=== PATIENT | male | born 1940 | race Caucasian/White ===

== ENCOUNTER 2020-03-05 18:49 | Inpatient (IN) | payer OTHER ==
[~2020-03-05] VITALS: Ht 185.4 cm; Wt 78.9 kg
--- NOTE | ~2020-03-05 | HC ---
[facility] [place] [address] CONSULTATION Name: LAKESHIA AUSTIN Room #: 211-P ADM IN M.R.#: [id number] Admission: 03/05/20 Attend Phys: Fly Willis MD Discharge: Date of : 38 Report #: [id number] THIS REPORT FOR: cc: Lori Davis,Nitesh Lange MD ~ DATE OF SERVICE: 03/10/2020 HISTORY OF PRESENT ILLNESS: The patient is an 79-year-old white male transferred from [facility] for recurrent positive blood cultures. He has a history of myelofibrosis with a hemoglobin typically running around 8-9, but was noted to have a lower hemoglobin upon admission at 6.6. He was transfused. He had complaints of left shoulder pain. He was diagnosed with persistent MSSA bacteremia secondary to a cervical abscess with osteomyelitis. MRI showed a cervical osteomyelitis approximately 2 cm abscess. 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 There is suspicion for endocarditis. Ortho Spine has been consulted as well. We are seeing the patient in rehabilitation medicine consultation. PAST MEDICAL HISTORY: Includes GI bleed, hypertension, diabetes mellitus, leukemia. He has a history of myelofibrosis. He had a basal cell CA removed from his face, 01/23/2020. He has a prior history of a CVA, but it does not sound like he had that much in the way of residual, history of prostate CA, status post prostatectomy. MEDICATIONS: Please see the full medication listing. ALLERGIES: PENICILLIN. SOCIAL HISTORY: Lives in a house with his , one step in. Did not utilize any gait aids. They are both retired. He has occasional falls approximately once a year when he "does something stupid." per the patient and his . REVIEW OF SYSTEMS: Did not offer any current complaints of chest pain, shortness of breath, abdominal discomfort. Complains of overall generalized weakness and debilitation. PHYSICAL EXAMINATION: GENERAL: An 79-year-old white male in no obvious distress. VITAL SIGNS: Last recorded temperature 97.2, pulse 60, respirations 18, blood pressure 123/47. The patient is a little groggy, but otherwise he is alert and follows basic 1 step commands. HEENT: Facies are symmetric. EXTREMITIES: He has some decreased range of motion of both shoulders at end [facility] [address] [place] [address] CONSULTATION Name: LAKESHIA AUSTIN Room #: 211-P [facility] IN [facility].#: [id number] Admission: 03/05/20 Attend Phys: Fly Willis MD Discharge: Date of : 38 Report #: [id number] range with some discomfort. I would grade his strength at probably a grade 4-/5. His lower extremities, he appears to have 1+ to 2+ lower extremity edema. This is pretibial. Strength is probably a grade 4- to 3+/5. DTRs are trace to 1. He has been min assist with sit to stand and has been min assist to ambulate up to 200 feet with a front-wheeled walker. He does have some decreased balance. OT notes that he is mod assist with toilet transfers, max assist to don socks. ASSESSMENT: The patient is an 79-year-old male with the following problem list: 1. 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 2. Persistent Methicillin-resistant Staphylococcus aureus bacteremia secondary to the cervical abscess. 3. Suspected endocarditis per the Infectious Disease with workup underway. 4. Myelofibrosis. 5. Diabetes mellitus. 6. Chronic kidney disease. 7. Paroxysmal atrial fibrillation. 8. Remote history of prostate cancer. 9. Remote stroke. PLAN: Workup is continuing. Multiple consultants are involved. Therapies are working with him. He certainly may be a candidate for an acute in-hospital inpatient rehabilitation stay to further maximize his functional independence with mobility and ADLs as well as the continuation of appropriate medical treatment/antibiotics/multiple sap plant maintenance consultant involvement as warranted. At this point, we will be glad to follow along with you regarding his rehab therapy needs. By: [phone] Nitesh Cates MD /DANTE
[~2020-03-05 18:49] MED LIST: AMLODIPINE BESY10 MG PO; ASPIR 8181 MG PO; AZITHROMYCIN 2250 MG PO; CARVEDILOL12.5 MG PO; CEFDINIR300 MG PO; COZAAR 50 MG TA50 M1 PO; D3-501250 MCG PO; FISH OIL 1,001000 M2 PO; GLIPIZIDE 10 MG10 MG PO; GLUCOTROL5 MG PO; HUMALOG100 UNIT/1 SUBQ; HYDROCHLOROTHIA25 M2 PO; JAKAFI20 MG PO; LASIX 40 MG TAB40 M2 PO; LIPITOR10 MG PO; LISINOPRIL20 MG PO; LOPRESSOR50 PO; LORCET 5-325 M1 EACH PO; LOSARTAN POTAS100 MG PO; MEDROLDOSEPACK PO; METFORMIN HCL500 M3 PO; METFORMIN HCL500 MG PO; MUCINEX600 MG PO; NEURONTIN 300300 M1 PO; NIFEDIPINE ER30 M1 PO; PREDNISONE 10 M10 MG PO; PRILOSEC PO; PROAIR HFA8.5 GM INH; SENNA PLUS TAB1 EACH PO; TRIGLIDE160 M1 PO; VENTOLIN HFA 1818 GM INH; XARELTO15 MG PO
--- NOTE | 2020-03-05 19:16 | NUR ---
TO UNIT FROM [facility] BY THIAGO, REPORT FROM MARCEL PRIEST, AT 1840. REPORT TO MARCEL HEREDIA.
--- NOTE | 2020-03-06 04:21 | NUR ---
ASSUMED CARE OF PT, PT ADMITTED DIRECT ADMIT FROM [facility]. SUPPLY CRIB ATTENDANT PLACED ON SHOWS NSR WITH PAC'S PT ASSISTED UP TO CHAIR DUE TO PT STATES HE IS UNABLE TO REST IN BED. ASSESSMENTAND DATA BASE COMPLETED. DISCUSSED POC WITH PT. YELLOW SOCK PLACED ON WITH YELLOW ARM BAND AND CHAIR ALARM FOR SAFETY . NEW PLACED DUE TO PRESENT IV INFILTRATED. FREQ CHECKS DUE PT IN BACK HALLWAY AND CHAIR ALARM IS HARD TO HEAR.
[2020-03-06 04:45] VITALS: BP 107/47
[2020-03-06 05:40] LABS: HEMATOCRIT 22.2 % (42.0-52.0); HEMOGLOBIN 7.1 gm/dL (14.0-18.0); MCHC 32.1 g/dL (28.0-37.0); MCV 81.1 fL (80.0-100.0); RBC 2.74 mil/uL (4.50-6.00); RDW 22.6 % (10.5-14.5); WBC 15.3 thou/uL (4.0-11.0)
[2020-03-06 05:47] LABS: CALCIUM 8.7 mg/dL (8.5-10.1); CREATININE 1.9 mg/dL (0.7-1.3); POTASSIUM 5.4 mmol/L (3.5-5.1)
[2020-03-06 07:55] VITALS: BP 152/69
[2020-03-06 11:30] VITALS: BP 133/59
[2020-03-06 16:00] VITALS: BP 122/48
--- NOTE | 2020-03-06 20:14 | NUR ---
ASSUMMED PT CARE AT APPROXIMATELY 0700. PT A&0 X4, FORGETFUL AT TIMES. PT DROWSY THROUGHOUT SHIFT. ASSESSMENT CHARTED. FALL PRECAUTIONS IN PLACE. PT DENIES HAVING CHEST PAIN. PT DENIES HAVING SOB. PT STATED HE HAD ACUTE PAIN. PT RECEIVED ANALGESICS. PT STATED ANALGESICS HELPED RELIEVE PAIN. VITAL SIGNS STABLE. BLOOD SUGARS STABLE. PT COMFORTABLE. PT DENIES HAVING FURTHER CONCERNS. PT UP TO CHAIR THROUGHOUT SHIFT. EDUCATED PT AND PT'S FAMILY ABOUT POC. PT AND PT'S FAMILY STATED UNDERSTANDING AND DENIED HAVING FURTHER QUESTIONS.
[2020-03-06 20:42] VITALS: BP 144/57
[2020-03-07] VITALS (7 sets, daily range): BP systolic 107–122; BP diastolic 45–62
[2020-03-07 05:28] LABS: HEMOGLOBIN 6.7 gm/dL (14.0-18.0)
[2020-03-07 05:30] LABS: MCV 81.3 fL (80.0-100.0); RBC 2.58 mil/uL (4.50-6.00); RDW 22.9 % (10.5-14.5); WBC 13.3 thou/uL (4.0-11.0)
[2020-03-07 05:38] LABS: CALCIUM 8.2 mg/dL (8.5-10.1); CREATININE 1.6 mg/dL (0.7-1.3); MAGNESIUM 2.1 mg/dL (1.8-2.4); POTASSIUM 4.6 mmol/L (3.5-5.1)
--- NOTE | 2020-03-07 07:23 | NUR ---
ASSESSMENT DOCUMENTED.PT A/OX4,VSS.RA W/O RESP DISTRESS.PT BEEN C/O PAIN NOT CONTROLLED WITH THE ORDERED PAIN MEDS.PT STATED PAIN IS FROM THE NECK DOWN THE SPINE TO LOWER BACK.HE STATED IT'S WORSE ON THE LEFT SIDE.HE BEEN UP IN THE CHAIR MOST 0F THE NOC SINCE HE CANNOT TOLERATE SLEEPING IN THE BED.HEATING PAD AND REPOSTIONING HAVE BEEN APPLIED WELL W/O MUCH RELIEF.PT STATING NOTHING IS WORKING FOR HIS PAIN.HE SEEMS LIKE HE IS GETTING FRUSTRATED.HE STATED HIS BEEN IS GETTING WORSE.ON ANTIBIOTICS FOR BACTERIMIA. JOSIANE LES EDEMATOUS.UNABLE TO ELEVATE THEM SINCE PT WONT LAY DOWN.IVF INFUSING.PT ALSO C/O NOT HAVING BOWEL MOVEMENT FOR A WEEK.MEDS GIVEN ORDERED.LACQUER COATER WAS NOTIFIED ,DULCOLAX SUPPOSITORY WAS GIVEN W/GOOD RESULTS.SO FAR HE HAS HAD THREE SOFT BM.HE DENIES FURTHER CONCERNS.DISCUSSED WITH DAY RN AND REQUESTED TO F/U ON PAIN MANAGEMNET WITH THE PROVIDER.WILL CONT WITH POC/
--- NOTE | 2020-03-07 12:40 | NUR ---
PT CARE ASSUMED AT 0700. ASSESSMENTS CHARTED. MEDICATION CHARTED. PT HAS UNCONTROLLED PAIN, BUT HAS NOT REQUESTED PAIN MEDICATION. LFA IV. TRANSESOPHAGEAL ECHO SCHEDULED FOR 03/08. CC DIET; ACHS. BIGEMINY; RATE OF 60. AO X 4. ASSIST X 1. PT TO GET BLOOD TRANSFUSION. PT TRANSFERRED TO NURSE PLEITEZ'S CARE.
[2020-03-07 17:01] LABS: HEMATOCRIT 25.3 % (42.0-52.0); HEMOGLOBIN 7.8 gm/dL (14.0-18.0)
[2020-03-08 03:38] VITALS: BP 119/54
[2020-03-08 04:39] LABS: CALCIUM 8.3 mg/dL (8.5-10.1); CREATININE 1.3 mg/dL (0.7-1.3); MAGNESIUM 2.1 mg/dL (1.8-2.4); POTASSIUM 4.5 mmol/L (3.5-5.1)
[2020-03-08 04:41] LABS: HEMATOCRIT 24.9 % (42.0-52.0); HEMOGLOBIN 7.9 gm/dL (14.0-18.0); MCHC 31.5 g/dL (28.0-37.0); MCV 82.5 fL (80.0-100.0); RBC 3.02 mil/uL (4.50-6.00)
--- NOTE | 2020-03-08 06:13 | NUR ---
PAIN FAIRLY CONTROLLED.MONITOR SHOWS BIGEMINY.POC CONTINUED.
--- NOTE | 2020-03-08 11:36 | NUR ---
ASSESSMENT: CM REVIEWED CHART AND CONTACTED PATIENT IN HIS ROOM BUT HIS HEBERT ANSWERED. PT IS A DIRECT ADMIT FROM [facility] FOR EVAL OF BACTEREMIA. PT IS CURRENTLY ON IV ANBX AND ID IS FOLLOWING. PT LIVES AT HOME WITH HIS IN A HOUSE. REPORTS THEY HAVE ONE STEP TO ENTER THE HOME AND NO STEPS HE HAS TO USE ONCE INSIDE. REPORTS PATIENT IS INDEPENDENT WITH ADLS AND AMBULATION. PT DOES NOT HAVE A CANE OR WALKER BUT DOES HAVE A GRAB BAR AND SHOWER CHAIR. PT HAS HAD [facility] IN THE PAST AND ALSO HAS BEEN TO [facility] IN THE PAST. CM DISCUSSED HOW PATIENT IS ON IV ANBX AND PT/OT IS ORDERED TO EVAL PATIENT. SHE STATES THEY PREFER THAT PATIENT NOT GO TO A SNF AT ALL AT DISCHARGE BUT WILL SEE WHAT THE RECOMMENDATIONS ARE. SHE REPORTS IF PATIENT IS NEEDING A LONG COURSE OF IV ANBX THEY WOULD PREFER TO GO HOME WITH POSSIBLE HOME IV ANBX RATHER THEN SNF. CM WILL COTNINUE TO FOLLOW AND AWAIT FURTHER RECOMMENDATIONS AND PT/OT EVALS.
[2020-03-08 12:23] VITALS: BP 145/57
[2020-03-08 14:07] VITALS: BP 118/46
[2020-03-08 17:06] VITALS: BP 120/41
--- NOTE | 2020-03-08 19:23 | NUR ---
ASSUMED CARE AT CHANGE OF SHIFT. ALERT X4, VOICED HE FEELS FOGGY WITH NARCOTICS. TREATED PAIN WITH TYLENOL ONLY WITH MINIMAL RELIEF. STAND BY ASSIST. LARGE BM TODAY VOIDS PER URINAL. NPO FOR LUIS FERNANDO TOMORROW. LAUREL COPLETED C REPORT FOR DETAILS. NEUROSURGEN CONSULTED NOTOIFIED. 2+ EDEMA TO LE ENCOURAGED TO ELEVATE. CALL LIGHT AND PERSONAL ITEMS IN REACH. FALL PRECATIONS IN PLACE.
[2020-03-08 20:55] VITALS: BP 145/107
--- NOTE | 2020-03-09 01:47 | NUR ---
PAIN POORLY CONTROLLED.NPO SINCE MIDNIGHT FOR A POSSIBLE LUIS FERNANDO IN AM.HEATING PAD INTERMITTENTLY.MONITOR SHOWS SR WITH BIGEMINY.POC CONTINUED.
[2020-03-09 04:45] VITALS: BP 135/48
[2020-03-09 05:06] LABS: HEMATOCRIT 23.7 % (42.0-52.0); HEMOGLOBIN 7.6 gm/dL (14.0-18.0); MCV 81.2 fL (80.0-100.0); RBC 2.92 mil/uL (4.50-6.00); RDW 21.7 % (10.5-14.5); WBC 24.2 thou/uL (4.0-11.0)
[2020-03-09 05:24] LABS: CALCIUM 8.4 mg/dL (8.5-10.1); CREATININE 1.4 mg/dL (0.7-1.3); MAGNESIUM 2.1 mg/dL (1.8-2.4); POTASSIUM 4.5 mmol/L (3.5-5.1)
--- NOTE | 2020-03-09 07:59 | NUR ---
CONSENT OBTAINED THIS AM FOR UPCOMING LUIS FERNANDO, PT VERBALIZED UNDERSTANDING OF PROCEDURE AND RISKS DISCUSSED, NO CONCERNS AT THIS TIME. PT REMAINS NPO AT THIS TIME. DENIES ANY PAIN AT PRESENT. AFEBRILE THIS AM/
[2020-03-09 08:11] VITALS: BP 156/43
--- NOTE | 2020-03-09 09:21 | TEE ---
[facility] [place] [address] TRANSESOPHAGEAL ECHOCARDIOGRAM Name: LAKESHIA AUSTIN Room #: 211-P ADM IN M.R.#: [id number] Admission: 03/05/20 Attend Phys: Fly Willis MD Discharge: Date of : 38 Report #: [id number] THIS REPORT FOR: cc: Lori Davis Anna S. DO Lundgren, Craig H. MD [facility] ~ APPROVED REPORT Study performed: 03/09/2020 08:45:35 EXAM: Transesophageal Echocardiogram Patient Location: In-Patient Room #: 211 Status: routine BSA: 2.03 HR: 69 bpm BP: 192/51 mmHg Rhythm: NSR Other Information Study Quality: Good Indications Rule out endocarditis. Procedure After obtaining informed consent, patient underwent transesophageal echo in the [employer]. Type of Sedation : Conscious Sedation Sedation was administered by Srinivas Woodard RN. Sedation was achieved intravenously with: Versed (2) Fentanyl (100) Transesophageal probe was inserted and advanced into esophagus without difficulty by Merlin Chaudhary MD. Echo enhancement indication: R/O Septal defect. Echo enhancement agent administered: Agitated Saline The LUIS FERNANDO was performed without complications. Throughout the procedure, the blood pressure, pulse oximetry, cardiac rhythm, and rate were monitored. The patient tolerated the procedure without adverse effects. Recovery from conscious sedation was uneventful and vital signs were stable. Left Ventricle [facility] [address] [place] [address] TRANSESOPHAGEAL ECHOCARDIOGRAM Name: LAKESHIA AUSTIN Room #: 211-P [facility] IN M.R.#: [id number] Admission: 03/05/20 Attend Phys: Fly Willis, Discharge: Date of : 38 Report #: [id number] The left ventricle is normal size. There is normal LV segmental wall motion. Mild concentric left ventricular hypertrophy. Left ventricular systolic function is normal. LVEF is 55-60%. Right Ventricle The right ventricle is normal size. The right ventricular systolic function is normal. Atria Left atrium is dilated. No thrombus is visualized in the left atrium or appendage. No shunting noted with contrast bubble injection. The right atrium size is normal. Aortic Valve Aortic valve is moderately calcified, trileaflet. Trace aortic regurgitation. Mild aortic stenosis (peak gradeint- 25mmHg; mean gradient-12mmHg per TTE). Mitral Valve The mitral valve is normal in structure. Mild-moderate mitral regurgitation. No evidence of mitral valve stenosis. Tricuspid Valve The tricuspid valve is normal in structure. Trace tricuspid regurgitation. Pulmonic Valve The pulmonary valve is normal in structure. Trace pulmonic regurgitation. Great Vessels The aortic root is normal in size. Mild atherosclerotic plaque in the descending aorta. IVC is normal in size and collapses >50% with inspiration. Pericardium There is no pericardial effusion. Critical Notification Physician Notified <Conclusion> Left ventricular systolic function is normal. There is normal LV segmental wall motion. LVEF is 55-60%. Left atrium is dilated. [facility] [address] [place] [address] TRANSESOPHAGEAL ECHOCARDIOGRAM Name: LAKESHIA AUSTIN Room #: 211-P [facility] IN M.R.#: [id number] Admission: 03/05/20 Attend Phys: Fly Willis, Discharge: Date of : 38 Report #: [id number] No thrombus is visualized in the left atrium or appendage. No shunting noted with contrast bubble injection. Aortic valve is moderately calcified, trileaflet. Trace aortic regurgitation. Mild aortic stenosis (peak gradeint- 25mmHg; mean gradient-12mmHg per TTE). The mitral valve is normal in structure. Mild-moderate mitral regurgitation. Mild atherosclerotic plaque in the descending aorta. There is no pericardial effusion. No vegetations seen <ELECTRONICALLY SIGNED> By: Merlin Chaudhary MD, FACC 03/09/20920 0 0 Merlin Chaudhary MD, FACC /INF
--- NOTE | 2020-03-09 10:11 | NUR ---
PT. BACK FROM LUIS FERNANDO PROCEDURE AT THIS TIME. ALERT AND HAPPY TO SEE HIS -BECAME TEARFUL WHEN HE SAW HER. DEIES ANY NEW PAIN OTHER THEN WHAT HE HAS HAD SINCE HE WENT INTO [facility]. DENIES ANY CHEST PAIN. IV FLUSHED AND PATENT AT THIS TIME. PT. CONTINUES IN SR WITH BIGEMNY HEART RATE IN THE 50'S, BLOOD PRESSURES ARE STABLE THOUGH.
[2020-03-09 10:13] VITALS: BP 157/53
[2020-03-09 13:44] VITALS: BP 133/62
--- NOTE | 2020-03-09 14:17 | NUR ---
PT. RESTING IN HIS ROOM AND STATED HIS PAIN IS STILL THERE BUT "SLIGHTLY BETTER", POST PAIN MEDICATION GIVEN AT LUNCHTIME TODAY. CALL LIGHT IS WITHIN REACH THE BED WAS UNPLUGGED FROM HIS PROCEDURE AND NOT REATTACHED WHICH IT IS NOW, CALL LIGHT WAS NOT WORKING BECUASE OF SUCH. LIDOCAINE PATCH PLACED ON LEFT SIDE OF HIS NECK WHICH HE SHOWED ME WHERE HIS CHRONIC NECK PAIN HAS BEEN, LIGHT MASSAGE TO SITE WELL HE SAEEMS PRETTY MISERABLE FROM THIS ONGOING ISSUE. NEUROSURGERY HAS BEEN CONSULTED FOR INFECTION AT THIS AREA APPARENTLY.
--- NOTE | 2020-03-09 15:04 | NUR ---
Spoke with regarding dc planning as patient is asleep. reports they do not want skilled care. She cannot visit and be with patient. Request 5N consult. reports would be agreeable to acute rehab. If not acute rehab then home with HH. If need for continued antibiotics then she feels she can attempt to learn in home setting.
[2020-03-09 16:31] VITALS: BP 117/42
[2020-03-09 20:27] VITALS: BP 148/56
[2020-03-10 04:42] VITALS: BP 116/48
[2020-03-10 05:17] LABS: CALCIUM 8.3 mg/dL (8.5-10.1); CREATININE 1.3 mg/dL (0.7-1.3); POTASSIUM 4.6 mmol/L (3.5-5.1)
[2020-03-10 05:19] LABS: HEMATOCRIT 23.7 % (42.0-52.0); HEMOGLOBIN 7.5 gm/dL (14.0-18.0); MCH 26.1 pg (26.0-34.0); MCHC 31.7 g/dL (28.0-37.0); MCV 82.2 fL (80.0-100.0); RBC 2.88 mil/uL (4.50-6.00); RDW 22.1 % (10.5-14.5); WBC 25.3 thou/uL (4.0-11.0)
--- NOTE | 2020-03-10 06:32 | NUR ---
ASSESSMENTS CHARTED, MEDS CHARTED GIVEN. C/O PAIN DURING START OF SHIFT 02/27. PATIENT SPENT SHIFT SITTING IN A STRAIGHT BACK CHAIR. C/O PAIN ON BUTTOCKS, BARRIER CREAM APPLIED, PATIENT GOT UP AND WALKED TWICE DURNG SHIFT 2 LAPS THE FIRST TIME AND THREE LAPS THE SECOND. WEARING BRIEF. USING WALKER. UP WITH STANDBY ASSIST. FALL PRECAUTIONS IN PLACE DURING SHIFT.
[2020-03-10 07:28] VITALS: BP 123/47
[2020-03-10 11:06] VITALS: BP 105/44
--- NOTE | 2020-03-10 14:39 | NUR ---
5N CONSULT RECEIVED. Pt SEEN BY DR. ARTHUR SCHWARTZ. PER DR. SCHWARTZ, Pt IS CANDIDATE FOR ACUTE REHAB. CALLED [facility] AND SPOKE WITH CHERRY FORK REGARDING ACUTE REHAB AUTHORIZATION. REFERENCE #[id number]. WILL FAX CLINICAL INFORMATION TO [facility] ONCE REQUESTED. OF NOTE, Pt NOW TO HAVE I&D OF CERVICAL ABSCESS WITH DR. SNELL TOMORROW MORNING.
--- NOTE | 2020-03-10 14:45 | NUR ---
Patient accepted to 5N clinically they are in process of obtaing auth.
[2020-03-10 15:19] VITALS: BP 138/44
--- NOTE | 2020-03-10 16:58 | NUR ---
RECEIVED CALL FROM MARIM[facility] REGARDING REQUEST FOR CLINICAL INFO/UPDATES ON Pt FOR AUTHORIZATION. CLINICAL INFO SENT TO FAX #[phone] REQUESTED. AWAITING DETERMINATION FROM [facility].
[2020-03-10 20:45] VITALS: BP 105/72; BP 138/68
[2020-03-10 22:18] VITALS: BP 121/66; BP 161/62
[2020-03-11] VITALS (9 sets, daily range): BP systolic 105–166; BP diastolic 34–79
[2020-03-11 05:40] LABS: HEMATOCRIT 25.9 % (42.0-52.0); HEMOGLOBIN 8.5 gm/dL (14.0-18.0); MCH 27.1 pg (26.0-34.0); MCHC 32.8 g/dL (28.0-37.0); MCV 82.7 fL (80.0-100.0); RBC 3.13 mil/uL (4.50-6.00); RDW 21.2 % (10.5-14.5); WBC 27.3 thou/uL (4.0-11.0)
[2020-03-11 05:53] LABS: CALCIUM 8.5 mg/dL (8.5-10.1); CREATININE 1.3 mg/dL (0.7-1.3); POTASSIUM 4.6 mmol/L (3.5-5.1)
--- NOTE | 2020-03-11 11:21 | EKG ---
[facility] [place] [address] ELECTROCARDIOGRAM REPORT Name: LAKESHIA AUSTIN Room #: 211-P ADM IN M.R.#: [id number] Admission: 03/05/20 Attend Phys: Fly Willis MD Discharge: Date of : 38 Report #: [id number] THIS REPORT FOR: cc: Lori Davis,Godfrey Funk MD [facility] ~ THIS REPORT FOR: //name// [facility] Test Date: 2020-03-11 Test Time: 09:53:04 Pat Name: LAKESHIA AUSTIN Department: Room: 211 P Gender: M Compotype Operator: YARELY : 1940 Requested By: Hui Graff Order Number: [id number] MD: Godfrey Park Measurements Intervals Roach Rate: 45 P: 0 OR: 278 QRS: -12 QRSD: 81 T: 13 QT: 458 QTc: 397 Interpretive Statements Sinus rhythm Supraventricular bigeminy FIRST DEGREE AV BLOCK Abnormal R-wave progression, early transition Inferior infarct, old No previous ECG available for comparison Electronically Signed On 03-11-2020 11:20:52 CDT by Godfrey Park [email or web address] <ELECTRONICALLY SIGNED> By: Godfrey Park MD, FACC 03/11/20 [id number] [id number] Godfrey Park MD, FACC /EPI
--- NOTE | 2020-03-11 11:22 | EKG ---
[facility] [place] [address] ELECTROCARDIOGRAM REPORT Name: LAKESHIA AUSTIN Room #: 211-P ADM IN M.R.#: [id number] Admission: 03/05/20 Attend Phys: Fly Willis MD Discharge: Date of : 38 Report #: [id number] THIS REPORT FOR: cc: Lori Davis,Godfrey Funk MD [facility] THIS REPORT FOR: //name// [facility] Test Date: 2020-03-11 Test Time: 10:14:08 Pat Name: LAKESHIA AUSTIN Department: Room: 211 P Gender: M Fur Glosser: YARELY : 1940 Requested By: Hui Graff Order Number: [id number] MD: Godfrey Park Measurements Intervals [place] Rate: 51 P: 148 ME: 286 QRS: -8 QRSD: 89 T: 9 QT: 449 QTc: 414 Interpretive Statements NSR FIRST DEGREE AV BLOCK Compared to ECG 03/11/2020 09:53:04 NO significant changes Electronically Signed On 03-11-2020 11:22:00 CDT by Godfrey Park [email or web address] <ELECTRONICALLY SIGNED> By: Godfrey Park MD, FAC 03/11/20 1122 1014 1014 Godfrey Park MD, [facility] /EPI
--- NOTE | 2020-03-11 13:39 | NUR ---
Patient to have I/D today. 5N in process of obtaing auth for rehab. Inquired into benefits for home infusion. Cefazolin 2g every 8 hours. [facility] in network with insurance. patient has met deductable and out of pocket. Supplies covered at 100%. Med D copy is $4.83 out of pocket for 7 days. Casemgt following.
--- NOTE | 2020-03-11 15:49 | NUR ---
PT WAS TRANSFERED FROM [facility] THIS AFTERNOON POST I&D. CM REVIEWED CHART AND SPOKE WITH CARE TEAM. CM MET WITH PT AND SPOUSE AT BEDSIDE THIS DAY. CM ROLE INTRODUCED. AWAITING AUTH FOR POSSIBLE ADMISSION TO ACUTE INPATIENT REHAB. CM NOTIFIED PT AND SPOUSE OF HOME INFUSION COVERAGE. THEY ARE AWARE. CM TO FOLLOW INDICATED WITH DC PLANNING.
--- NOTE | 2020-03-11 16:53 | NUR ---
ASSUMED PT CARE UPON TRANSFER AT 1300. PT VITAL SIGNS STABLE, A&OX4. PT COMPLAINS OF PAIN ON LEFT SIDE OF BODY. DRESSING C/D/I. PAIN PARTIALLY MANAGED WITH MEDICATION. PT HAS LOWER EXTREMITY EDEMA, NURSE ENCOURAGED TO ELEVATE LEGS, BUT PT REFUSED. PT ON TELE. PT SITTING ON CUSHION TO OFFLOAD PRESSURE ON COCCYX. PT SITTING IN CHAIR ON CHAIR ALARM.
[2020-03-12 06:03] LABS: HEMATOCRIT 26.8 % (42.0-52.0); HEMOGLOBIN 8.6 gm/dL (14.0-18.0); MCH 26.7 pg (26.0-34.0); MCV 83.4 fL (80.0-100.0); PLATELET COUNT 100 thou/uL (150-400); RBC 3.22 mil/uL (4.50-6.00); RDW 21.9 % (10.5-14.5); WBC 33.1 thou/uL (4.0-11.0)
[2020-03-12 06:22] LABS: CALCIUM 8.3 mg/dL (8.5-10.1); CREATININE 1.3 mg/dL (0.7-1.3)
[2020-03-12 07:30] VITALS: BP 129/75
--- NOTE | 2020-03-12 08:01 | NUR ---
ASSUMED CARE OF PT AT 1900. PT AOX4 AND LETS NEEDS BE KNOWN. FALL PRECAUTION IN PLACE. PT REPORTED PAIN AND WAS TREATED WITH PRN PAIN MEDS. PT DENIED N/V OR SOA. NA DRAIN IN PLACE. VSS AND NO S/S OF ACUTE DISTRESS. REPORT GIVEN TO HÉCTOR ROD.
--- NOTE | 2020-03-12 09:29 | O ---
[facility] [place] [address] OPERATIVE REPORT Name: LAKESHIA AUSTIN Room #: 454-P ADM IN M.R.#: [id number] Admission: 03/05/20 Attend Phys: Fly Willis MD Discharge: Date of : 38 Report #: [id number] THIS REPORT FOR: cc: Lori Davis,Henry Catherine MD ~ CC: Lori Willis DATE OF SERVICE: 03/11/2020 PREPROCEDURAL DIAGNOSIS: Prevertebral abscess. POSTPROCEDURAL DIAGNOSIS: Prevertebral abscess. PROCEDURE: Complex I and D with placement of drain in left longus colli abscess. SURGEON: Dr. Henry Vee. CASH POSTING SPECIALIST SURGEON: ALOK Cavazos ANESTHESIA: General via endotracheal tube. INDICATIONS: The patient has been septic and most recently after being started on broad-spectrum antibiotic been bacteremic. He is noted to have a large mass extending from approximately C3-T3 in a left paravertebral location. It involves the area immediately anterior to the lateral masses and the left side of the vertebral body. The patient has just not been responding and there was thought to be some 2 cm abscess was called. The patient understood the risks of surgery to be , DVT, pulmonary embolism, paraplegia, loss of bowel or bladder function, loss of sexual function, possibility of bleeding, bleeding requiring transfusion, transfusion attendant risks of AIDS and hepatitis infection, instability, the need for revision, prolonged hospital stay, dural leak, spinal headache, change in voice, hoarseness, difficulty swallowing and he requested we proceed. DESCRIPTION OF PROCEDURE: The patient was brought to the operating room after understanding the risks of surgery and placed on the Fortino table in the radiolucent table after being receiving general anesthesia via endotracheal tube and NG tube was placed in the esophagus. The patient's position with the arms carefully padded, tucked and taped to the sides. Hips and knees were flexed over 2 pillows, heels were on gel. In this neck neutral position, the patient was sterilely prepped and draped and an incision was fashioned at approximately the C6-C7 level on the left anterior aspect of the neck, centered over the sternocleidomastoid. It was significantly larger to allow exploration both [address] [address] OPERATIVE REPORT Name: LAKESHIA AUSTIN Room #: 454-P [facility] IN ..#: [id number] Admission: 03/05/20 Attend Phys: Fly Willis MD Discharge: Date of : 38 Report #: [id number] cephalad and caudad. The patient was then sterilely prepped and draped. The skin was infiltrated with 0.5% Marcaine, 1:200,000 epinephrine and sharp dissection was continued down through the skin, the subcutaneous tissues to the level of the platysma. At the level of the platysma, flaps were undermined and the platysma was elevated between 2 forceps and split in combination in line with its fibers at the anterior border of the sternocleidomastoid. The sternocleidomastoid was elevated off the oblique strap muscles and the cephalad edge was found and at this point, we began blunt dissection just medial to the carotid. We dissected medially over what felt like a firm abnormal mass and reach the anterior aspect of the spine. I then went back and noted that the medial aspect of the carotid and then there was this large firm mass with what appeared to be a pseudocapsule and about the location of what would normally be the longus colli. I was gently developing the plane between the carotid and this mass when pus erupted under pressure from the mass and basically it was sucked with the sucker and expelled approximately 40 mL of purulent white material. This was then followed by a 2 liter irrigation and no debridement as the tissues looked healthy. No further pus was expressed, felt we could get down to T1-T2 and felt we were up to approximately C3-C4. We then placed a deep drain into the cavity where the pus had been present and after a 2 liter irrigation with antibiotic-containing solution, closed the wound in usual fashion reapproximating the platysma and subcuticular closure on the skin. The patient tolerated the procedure well. There were no technical misadventures. He was physiologically stable throughout and the mass that pseudo mass deflated as the pus was all drained from the material. The patient again stable, being transported to the recovery room for closer neurovascular observation. Cultures were taken and submitted for Gram stain, aerobic and anaerobic culture. The patient will be returned to the recovery room for closer neurovascular observation. Discharge to floor when stable. <ELECTRONICALLY SIGNED> By: Henry Vee MD 03/12/20 0929 1158 1220 Henry Vee MD /nt
--- NOTE | 2020-03-12 11:56 | NUR ---
RECEIVED CALL FROM [facility] DENYING INPT REHAB BUT WILL OFFER P-P TODAY BEFORE [address] COKER OF THIS & PROVIDED PH # [phone], [facility], REF # [id number], & 1940. NOTIFIED UNIT HIRED HELP TOO.
[2020-03-12 12:00] LABS: ABSOLUTE NEUTROPHILS 20.5 thou/uL (1.4-8.2); ANISOCYTOSIS 1+; PLATELET ESTIMATE NORMAL
--- NOTE | 2020-03-12 12:16 | NUR ---
CM NOTIFIED THAT [facility] HAD DENIED AUTH FOR ACUTE REAHB THIS DAY. CARE TEAM HAD INDICATED THAT PT'S WHITE BLOOD CELL COUNT IS ELEVATED AND THAT HE DOESN'T ANTICIPATE PT BEING MEDICALLY STABLE TO DISCHARGE OVER THE WEEKEND. DR. COKER WAS PROVIDED INFO FOR PEER TO PEER. PRASAD TO FOLLOW INDICATED WITH DC PLANNING.
--- NOTE | 2020-03-12 14:56 | NUR ---
ACUTE REHAB REQUEST FOR AUTHROIZATION WITHDRAWN BY [facility] DUE TO PATIENT IS NOT MEDICALLY READY FOR REHAB AT THIS TIME. IF PATIENT IS STILL APPROPRIATE FOR ACUTE REHAB WHEN MEDICALLY STABLE, ACUTE PROFESSOR OF RELIGIOUS STUDIES CAN RESUBMIT AUTHORIZTION REQUEST TO INSURANCE. WILL CONTINUE TO FOLLOW.
--- NOTE | 2020-03-12 14:58 | NUR ---
Assumed care of patient at 0700. Alert and oriented X4. Has lower extremety and left arm edema. Pleasant and cooperative. Complained of pain (9/10) neck area and left shoulder. Given [place] 2 tabs PO which was very effective. Seen by OT. Ambulating in hallway. Left neck dressing changed. NA drain intact. Remains on Carb Controlled diet. Gait steady when walking. IV site intact Right antecubital area. No signs infection. Cooperative with diabetic regimen.
[2020-03-12 20:11] VITALS: BP 141/45
--- NOTE | 2020-03-13 04:15 | NUR ---
Pt. rested quietly at short intervals during the night when checked on during frequent rounds. He prefers to sit up or recline in the chair instead of the bed. Pt. c/o generalized pain and po pain med given (see emar) with some relief noted. Dressing to left side of neck is dry and intact. Ethan drain patent. Chair alarm is on.
[2020-03-13 05:24] LABS: HEMATOCRIT 27.2 % (42.0-52.0); HEMOGLOBIN 8.7 gm/dL (14.0-18.0); MCH 26.7 pg (26.0-34.0); MCHC 31.9 g/dL (28.0-37.0); MCV 83.6 fL (80.0-100.0); PLATELET COUNT 76 thou/uL (150-400); RBC 3.25 mil/uL (4.50-6.00); RDW 21.3 % (10.5-14.5); WBC 38.3 thou/uL (4.0-11.0)
[2020-03-13 05:28] LABS: CALCIUM 8.1 mg/dL (8.5-10.1); CREATININE 1.3 mg/dL (0.7-1.3); POTASSIUM 4.7 mmol/L (3.5-5.1)
[2020-03-13 08:20] VITALS: BP 149/78
[2020-03-13 14:17] LABS: ABSOLUTE NEUTROPHILS 21.1 thou/uL (1.4-8.2); ANISOCYTOSIS 3+; METAMYELOCYTES 2 %; MICROCYTES 1+; MYELOCYTES 7 %
[2020-03-13 14:18] LABS: POIKILOCYTOSIS 2+
[2020-03-13 16:00] VITALS: BP 140/50
--- NOTE | 2020-03-13 17:37 | NUR ---
PT A&OX4, VSS, LEFT SIDE OF NECK AND LEFT SHOULDER PAIN. PATIENT HAS PITTING EDEMA BLE. PATIENT STARTED ON HOME MED FUROSEMIDE. BLADDER SCANNED AND 0. PATIENT WALKED AROUND HALLS WITH . NO SIGNS OF DISTRESS. WILL CONTINUE TO MONIOR.
--- NOTE | 2020-03-13 17:40 | NUR ---
PT A&OX4, VSS, PAIN IN BLE. PATIENT HAS HIGH ANXIETY. PATIENT STATES HE DOESNT WANT TO BE HERE AND DOESNT CARE IF HIS DIABETES KILLS HIM. PATIENT KEEPS HIS BED AT THE HIGHEST LEVEL AND REFUSES TO BRING IT DOWN LOW. PATIENT YELLS OUT CURSING D/T NOT BEING ABLE TO EAT SWEET SNACKS WE HAVE ON FLOOR. PATIENT HAS COOPERATED AND TOOK MEDS. PATIENT STATES HE WILL LEAVE AMA IF HE CANT GO OUTSIDE FOR FRESH AIR. PATIENT ATE A CIGARETTE TODAY, DOCTOR AWARE. PATIENT STATES HIS NICOTINE PATCH AND NORCO ISNT HELPING HIM, DOCTOR. AWARE. PSYCH CONSULT PLACED. NO SIGNS OF DISTRESS. WILL CONTINUE TO MONITOR.
[2020-03-13 22:53] VITALS: BP 135/46
--- NOTE | 2020-03-14 03:37 | NUR ---
ASSUMED PT CARE AT 1915. PT IS A&OX4. PT'S VSS. PT TAKES MEDS WHOLE BUT STRUGGLES TO GET THEM DOWN. PT USES URINAL AT THE BEDSIDE. HE STATES THAT HE FEELS LIKE HE NEEDS TO USE THE RESTROOM BUT IS UNABLE TO HAVE A BM. PT DOES NOT CALL OUT WHEN HE NEEDS TO GET UP. I WALKED THE PT AROUND THE MAIN TWO TIMES. PT COMPLAINS OF LEFT SHOULDER PAIN. WHEN I OFFERED PAIN MEDS HE ASKED FOR A SHOT. I'VE CALLED ORNAMENTAL IRON ERECTOR TO GET LIQUID HYDROCODONE, WAITING FOR RETURNED PHONE CALL. I RE EDUCATED THE PT ON THE IMPORTANCE OF ELEVATING HIS FEET. PT REFUSES TO ELEVATE HIS FEET. WILL CONTINUE TO MONITOR.
[2020-03-14 05:33] LABS: HEMATOCRIT 25.9 % (42.0-52.0); HEMOGLOBIN 8.3 gm/dL (14.0-18.0); MCH 26.6 pg (26.0-34.0); MCHC 32.2 g/dL (28.0-37.0); MCV 82.8 fL (80.0-100.0); PLATELET COUNT 58 thou/uL (150-400); RBC 3.13 mil/uL (4.50-6.00); RDW 21.7 % (10.5-14.5); WBC 31.8 thou/uL (4.0-11.0)
[2020-03-14 05:53] LABS: CALCIUM 8.4 mg/dL (8.5-10.1); CREATININE 1.3 mg/dL (0.7-1.3); POTASSIUM 4.7 mmol/L (3.5-5.1)
[2020-03-14 07:10] LABS: ANISOCYTOSIS 2+; POIKILOCYTOSIS 2+; POLYCHROMASIA 1+
[2020-03-14 07:11] LABS: LARGE PLATELETS SEVERAL; OVALOCYTES 2+; SCHISTOCYTES 1+; SPHEROCYTES 1+
[2020-03-14 07:31] VITALS: BP 131/68
[2020-03-14 17:15] VITALS: BP 126/89
--- NOTE | 2020-03-14 18:46 | NUR ---
Assumed care of pt. at 0700. Pt. was calm and cooperative. Pt. had trouble swallowing pills, but was able to do so when swallowed with pudding. Pt. ambulated several laps around unit with . Saira from lab called around 1000 and stated that the pt.'s Differential WBC lab yielded visible immature cells and would be reviewed by pathology tomorrow. Physician notified, no orders given. Fall precautions in place.
[2020-03-14 20:51] VITALS: BP 128/55
--- NOTE | 2020-03-15 02:23 | NUR ---
ASSUMED PT CARE AROUND 1930. AXOX4. [place] DEE-NI'. VSS. NECK DRESSINF CDI. NO S/S ACUTE DISTRESS NOTED OR REPORTED AT THIS TIME. WILL CONT TO MONITOR FOR ANY CHANGES IN CONDITION.
[2020-03-15 05:43] LABS: HEMOGLOBIN 8.8 gm/dL (14.0-18.0); MCH 26.1 pg (26.0-34.0); MCHC 31.4 g/dL (28.0-37.0); MCV 83.1 fL (80.0-100.0); PLATELET COUNT 55 thou/uL (150-400); RBC 3.37 mil/uL (4.50-6.00); RDW 21.9 % (10.5-14.5)
[2020-03-15 05:44] LABS: WBC 44.8 thou/uL (4.0-11.0)
[2020-03-15 05:50] LABS: CALCIUM 8.5 mg/dL (8.5-10.1); CREATININE 1.4 mg/dL (0.7-1.3); POTASSIUM 4.6 mmol/L (3.5-5.1)
[2020-03-15 07:34] VITALS: BP 145/60
[2020-03-15 10:13] LABS: BLASTS 4 %
[2020-03-15 10:15] LABS: IMMATURE MONONUCLEARS 11 %
[2020-03-15 10:33] LABS: ABSOLUTE NEUTROPHILS 18.8 thou/uL (1.4-8.2); ATYPICAL LYMPHS 6 %; MYELOCYTES 1 %; PROMYELOCYTES 1 %
[2020-03-15 10:35] LABS: BLASTS 11 %
[2020-03-15 14:03] LABS: ABSOLUTE NEUTROPHILS 21.1 thou/uL (1.4-8.2); METAMYELOCYTES 2 %; MYELOCYTES 5 %; PROMYELOCYTES 1 %
[2020-03-15 14:05] LABS: BLASTS 7 %
[2020-03-15 14:06] LABS: IMMATURE MONONUCLEARS 9 %
[2020-03-15 14:08] LABS: ANISOCYTOSIS 2+; OVALOCYTES 2+
[2020-03-15 14:09] LABS: SCHISTOCYTES FEW; TEARDROPS OCCASIONAL
[2020-03-15 14:10] LABS: MICROCYTES 2+; NUCLEATED RBCS 2 /100WBC
--- NOTE | 2020-03-15 14:17 | NUR ---
PHYSICIAN INDICATED PT'S WBC IS STILL ELEVATED AND THAT PC STILL ISN'T MEDICALLY STABLE TO DISCHARGE HOME OR FOR A POST ACUTE CARE STAY AT THIS TIME. CM UPDATED AMAERITA HOME INFUSION AND 5N. CM TO FOLLOW INDICATED WITH DC PLANNING.
--- NOTE | 2020-03-15 14:28 | NUR ---
ASSUMED PT CARE THIS AM. PT VITAL SIGNS STABLE, BLOOD SUGAR MONITORED. PT IS A&OX4, CONTINENT OF BOWEL AND BLADDER. PT REPORTS PAIN LEVEL OF 10, NON-RESPONSIVE TO MEDICATION GIVEN. PAIN MEDS CHANGED. IV PATENT. PT AMBULATORY TO BATHROOM. FOAM BANDAGE REPLACED ON BOTTOM. BED ALARM ON. MEALS TOLERATED WELL, HYDRATION PROMOTED. WILL CONTINUE TO MONITOR.
[2020-03-15 15:38] VITALS: BP 133/81
--- NOTE | 2020-03-15 18:12 | NUR ---
WENT TO PLACE PT'S PICC FOR HOME ABX. WANTS TO WAIT ON PLACEMENT UNTIL SHE SPEAKS WITH THE MD. RN ADVISED
[2020-03-15 19:31] VITALS: BP 121/50
--- NOTE | 2020-03-16 02:16 | NUR ---
ASSUMED PT CARE AROUND 1930. PT WAS SLEEPING IN THE BEGINNING OF THE SHIFT WOKE UP CONFUSED AND DISORIENTED. WAS ABLE TO CALM PT DOWN. VSS. AFTER AWHILE, PT BECAME ALERT AND ORIENTED. PT THINKS PT WAS SEDATED D/T PAIN MEDS THAT WAS CHANGES EARLIER. DID NOT ADMIN ANYMORE PAIN MED AND PT WAS ABLE TO WALK IN HALLWAYS WITHOUT DIFFICULTY. NO S/S ACUTE DISTRESS NOTED OR REPORTED AT THIS TIME. WILL CONT TO MONITOR FOR ANY CHANGES IN CONDITION.
[2020-03-16 05:46] LABS: HEMOGLOBIN 7.7 gm/dL (14.0-18.0); MCV 82.8 fL (80.0-100.0); WBC 37.7 thou/uL (4.0-11.0)
[2020-03-16 05:50] LABS: HEMATOCRIT 24.4 % (42.0-52.0); MCH 26.3 pg (26.0-34.0); MCHC 31.7 g/dL (28.0-37.0); PLATELET COUNT 44 thou/uL (150-400); RBC 2.94 mil/uL (4.50-6.00); RDW 21.4 % (10.5-14.5)
[2020-03-16 05:55] LABS: CALCIUM 8.3 mg/dL (8.5-10.1); CREATININE 1.3 mg/dL (0.7-1.3); POTASSIUM 4.2 mmol/L (3.5-5.1)
[2020-03-16 08:07] VITALS: BP 127/58
[2020-03-16 10:04] LABS: ABSOLUTE NEUTROPHILS 15.5 thou/uL (1.4-8.2); METAMYELOCYTES 3 %; MYELOCYTES 5 %; NUCLEATED RBCS 3 /100WBC
[2020-03-16 10:06] LABS: ANISOCYTOSIS 2+; HYPOCHROMASIA 1+; LARGE PLATELETS RARE; OVALOCYTES 2+; PLATELET ESTIMATE MARKEDLY DECREASED; POLYCHROMASIA SLIGHT
--- NOTE | 2020-03-16 10:37 | NUR ---
Patient comfortably resting in recliner chair, present at bedside. Pateint had no complaints this morning, last bowel movement was yesterday 10-. Dressing on antieror neck is dry, clean and intact. No complaints at the moment.
[2020-03-16 11:45] LABS: URIC ACID* 8.4 mg/dL (3.5-7.2)
--- NOTE | 2020-03-16 12:09 | NUR ---
I have reviewed the student's documentation.
--- NOTE | 2020-03-16 13:11 | NUR ---
ASSUMED PT CARE THIS AM. PT VITAL SIGNS STABLE, A&OX4. PT HAS A FLAT AFFECT AND IS MORE WITHDRAWN TODAY, REPORTED THAT HE GOT BAD NEWS FROM THE DR. PT ABLE TO WALK TO BATHROOM, AMBULATED AROUND UNIT. PT REPORTED PAIN IN NECK, WILL TRY REPOSITIONING AND MEDICATION WHEN ALLOWED BY PT. DENYING AT THE MOMENT. WILL CONTINUE TO MONITOR.
[2020-03-16 13:25] LABS: BLASTS 10 %; PROMYELOCYTES 3 %
--- NOTE | 2020-03-16 14:12 | NUR ---
VASCULAR ACCESS CONSULTED LAST WEEK FOR PICC PLACEMENT FOR HOME ABX THERAPY. DISCUSSED BENEFITS AND RISKS WITH PT AND , VERBALIZED UNDERSTANDING AND CONSENT OBTAINED. WILL BRACHIAL WAS WIDELY PATENT WITH USG. 4FR POWER PICC TRIMMED TO 46CM INSERTED TO 0CM EXTERNAL. PT TOLERATED WELL. STAT CXR ORDERED
--- NOTE | 2020-03-16 14:37 | NUR ---
CXR CONFIRMED PICC PLACEMENT. PICC RELEASED FOR IMMEDIATE USE TO VANCE ROD PER PROTOCOL
--- NOTE | 2020-03-16 14:51 | NUR ---
CARE TEAM INDICATED THAT DR. DUGAN WITH HEMATOLOGY HAD RECOMMENDED TRANSFER TO [facility] FOR EVALUATION OF LEUTEMIA TRANSFORMATION OF HIS MDS. CM MET WITH PT AND SPOUSE AND THEY WERE UNSERTAIN. DR. COKER VISTED AND THEY WERE CONSENTING TO TRANSFER. CM CONTACTED JOSEPH AT [facility] AND FAXED OVER CLINICAL INFO. PRASAD PROVIDED JOSEPH'S CONTACT FOR DR. COKER TO CALL WITH BRIEF CLINICAL OVERVIEW. SIGNED TRANSFER FORM AND [facility] FORM ON CHART IN WALL SOUND ENGINEER SHOULD THEY BE ABLE TO TAKE PT THIS EVENING. CM TO FOLLOW INDICATED WITH DC PLANNING.
[2020-03-16] MEDS ORDERED: ROBAXIN 750 MG750 MG PO (16:26)
[2020-03-16] MEDS ORDERED: ANCEF 1GM1 GM/50 M1 IVPB (16:26)
[2020-03-16] MEDS ORDERED: PERCOCET PO (16:26)
[2020-03-16] MEDS ORDERED: LASIX 40 MG TAB40 M2 PO (16:27)
[2020-03-16] MEDS ORDERED: GABAPENTIN 100100 MG PO (16:27)
[2020-03-16 17:20] VITALS: BP 153/70
[2020-03-16 18:37] VITALS: BP 121/52
== END 2020-03-16 18:50 | DRG 853 ==
LOC: 2N 18:49 → 4W 03-11 12:15
PROVIDERS: Anesthesiology; Hospitalist; Internal Medicine Hematology & Oncology; Nurse Practitioner Family; ADMIT Internal Medicine; ATTEND Internal Medicine
PROC: 30233N1 Transfusion of Nonautologous Red Blood Cells into Peripheral Vein, Percutaneous Approach (ICD-10-PCS; principal; 2020-03-12)
PROC: 0R9 Upper Joints, Drainage (ICD-10-PCS; principal; 2020-03-12)
DX: A41.9 Sepsis, unspecified organism (principal); G92 Toxic encephalopathy; J18.9 Pneumonia, unspecified organism; M46.22 Osteomyelitis of vertebra, cervical region; D62 Acute posthemorrhagic anemia; E87.1 Hypo-osmolality and hyponatremia; I50.42 Chronic combined systolic (congestive) and diastolic (congestive) heart failure; C95.90 Leukemia, unspecified not having achieved remission; E44.1 Mild protein-calorie malnutrition; L02.11 Cutaneous abscess of neck; M25.512 Pain in left shoulder; Z68.23 Body mass index [BMI] 23.0-23.9, adult; Z20.828 Contact with and (suspected) exposure to other viral communicable diseases
CPT/HCPCS: 10045; 10047; 10081; 27000; 50010; 50101; 50331; 50402; 56526; 56528; 57103; 62110; 62900; 70005